=== PATIENT | female | born 1935 | race Caucasian/White ===

== ENCOUNTER 2021-06-18 20:08 | Inpatient (IN) | payer MEDICARE, OTHER ==
[~2021-06-18] VITALS: Ht 154.9 cm; Wt 84.1 kg
[~2021-06-18 20:08] MED LIST: LEVO250S3 PO
[2021-06-18 20:34] LABS: BASOPHILS % (AUTO) 0.6 % (0.0-5.0); EOSINOPHILS % (AUTO) 1.1 % (0.0-8.0); HEMATOCRIT 40.6 % (36-48); LYMPHOCYTES % (AUTO) 16.2 % (21.0-51.0); MEAN CORPUSCULAR HGB CONC 31.5 g/dL (32.0-36.0); MEAN CORPUSCULAR VOLUME 95.1 fL (79-99); PLATELET COUNT (AUTO) 281 K/uL (130-400); RED BLOOD CELL COUNT(AUTO) 4.27 MIL/uL (4.00-5.50); RED CELL DISTRIBUTION WIDTH 12.3 % (11.0-15.5); WHITE BLOOD COUNT (AUTO) 8.3 K/uL (4.8-10.8)
[2021-06-18 21:00] LABS: ALBUMIN 2.8 g/dL (3.5-5.0); BILIRUBIN,TOTAL 0.3 mg/dL (0.2-1.0); TOTAL PROTEIN, SERUM 6.4 g/dL (6.0-8.3)
[2021-06-18 21:04] LABS: POTASSIUM 2.8 mmol/L (3.5-5.1)
[2021-06-18] MEDS ORDERED: POTASSIUM BICARB/CIT AC 25 MEQ TABLET.EFF PO ONE (21:30)
[2021-06-18 22:23] LABS: APPEARANCE,URINE Turbid (CLEAR); BILIRUBIN,URINE Negative (NEGATIVE); COLOR,URINE Yellow (YELLOW); GLUCOSE, URINE (UA) Negative (NEGATIVE); KETONES,URINE Negative (NEGATIVE); LEUKOCYTE ESTERASE ,URINE Moderate (NEGATIVE); NITRATE,URINE Negative (NEGATIVE); OCCULT BLOOD,URINE Moderate (NEGATIVE); PH,URINE 8.5 (5.0-8.0); PROTEIN,URINE 300 mg/dL (NEGATIVE)
[2021-06-18] MEDS ORDERED: ACETAMINOPHEN 325 MG TAB PO PRN ×2 (22:30)
[2021-06-18] MEDS ORDERED: ONDANSETRON 4MG INJ IV PRN (22:30)
[2021-06-18] MEDS ORDERED: LACTULOSE 20 GM/30 ML UDCUP PO PRN (22:30)
[2021-06-18 22:48] LABS: BACTERIA,URINE Many /HPF (None Seen); WBC,URINE 51-100 /HPF (0-1)
[2021-06-18] MEDS ORDERED: CEFTRIAXONE 1G VIAL IVP ONE (23:30)
[2021-06-19] VITALS (8 sets, daily range): BP systolic 121–150; BP diastolic 58–77
[2021-06-19] MEDS ORDERED: LIDOCAINE HCL-MPF 1% 2ML VIAL IV PRN
[2021-06-19] MEDS ORDERED: POTASSIUM CHLORIDE 20MEQ/100ML 100 ML IV PRN
[2021-06-19] MEDS ORDERED: KCL 20 MEQ ERTAB PO PRN
[2021-06-19] MEDS ORDERED: KCL 20 MEQ ERTAB PO ONE (00:14)
[2021-06-19] MEDS ORDERED: MIRT-22 PO (01:32)
[2021-06-19] MEDS ORDERED: OLAN5TAB76 PO (01:32)
[2021-06-19] MEDS ORDERED: LOSA25TA41 PO (01:32)
[2021-06-19] MEDS ORDERED: CHOL100046 PO (01:32)
[2021-06-19] MEDS ORDERED: PARO-37 PO (01:32)
[2021-06-19] MEDS ORDERED: MEMA5TAB42 PO (01:32)
[2021-06-19 02:24] LABS: BASOPHILS % (AUTO) 0.5 % (0.0-5.0); EOSINOPHILS % (AUTO) 0.5 % (0.0-8.0); HEMATOCRIT 39.1 % (36-48); LYMPHOCYTES % (AUTO) 21.7 % (21.0-51.0); MEAN CORPUSCULAR HEMOGLOBIN 31.3 pg (27.0-33.0); MEAN CORPUSCULAR HGB CONC 32.7 g/dL (32.0-36.0); MEAN CORPUSCULAR VOLUME 95.6 fL (79-99); MONOCYTES % (AUTO) 9.9 % (3.0-13.0); NEUTROPHILS % (AUTO) 67.2 % (40.0-77.0); PLATELET COUNT (AUTO) 296 K/uL (130-400); RED BLOOD CELL COUNT(AUTO) 4.09 MIL/uL (4.00-5.50); RED CELL DISTRIBUTION WIDTH 12.4 % (11.0-15.5); WHITE BLOOD COUNT (AUTO) 8.1 K/uL (4.8-10.8)
[2021-06-19 02:33] LABS: CREATININE 0.9 mg/dL (0.5-1.5); POTASSIUM 3.1 mmol/L (3.5-5.1)
[2021-06-19] MEDS: MAGNESIUM 2GM PREMIX 50ML 50 ML IV PRN (02:45)
[2021-06-19] MEDS: POTASSIUM CHLORIDE 10% ELIXIR 20 MEQ/15 ML UDCUP PO PRN ×3 (02:46→12:45)
[2021-06-19] MEDS: CEFTRIAXONE 1G VIAL IV SCH (09:26)
[2021-06-19] MEDS: PAROXETINE HCL 20 MG TABLET PO SCH (21:36)
[2021-06-20 04:25] VITALS: BP 155/68
[2021-06-20 05:38] LABS: ALBUMIN 2.7 g/dL (3.5-5.0); BILIRUBIN,TOTAL 0.5 mg/dL (0.2-1.0); CREATININE 0.8 mg/dL (0.5-1.5); MAGNESIUM 1.9 mg/dL (1.80-2.40); TOTAL PROTEIN, SERUM 6.1 g/dL (6.0-8.3)
[2021-06-20] MEDS: CEFTRIAXONE 1G VIAL IV SCH (06:45)
[2021-06-20 08:00] VITALS: BP 142/73
[2021-06-20] MEDS: PAROXETINE HCL 20 MG TABLET PO SCH ×2 (10:04→20:54)
[2021-06-20] MEDS: FAMOTIDINE 20MG TAB PO SCH (10:04)
[2021-06-20] MEDS: LOSARTAN 25 MG TABLET PO SCH (10:04)
[2021-06-20] MEDS: **HM** VIT D3 25MCG PO SCH (10:04)
[2021-06-20] MEDS: MEMANTINE HCL 5 MG TABLET PO SCH (10:04)
[2021-06-20] MEDS: ENOXAPARIN SODIUM 40 MG/0.4 ML SYRINGE SQ SCH (10:04)
[2021-06-20 11:30] VITALS: BP 142/107
[2021-06-20] MEDS: DEXTROSE 5%-WATER 1,000 ML IV SCH (12:56)
[2021-06-20 16:00] VITALS: BP 137/80
[2021-06-20 20:15] VITALS: BP 145/78
[2021-06-20 23:55] VITALS: BP 162/67
[2021-06-21] MEDS: DEXTROSE 5%-WATER 1,000 ML IV SCH (00:50)
[2021-06-21 03:53] VITALS: BP 125/60
[2021-06-21 04:47] LABS: BASOPHILS % (AUTO) 1.2 % (0.0-5.0); EOSINOPHILS % (AUTO) 3.1 % (0.0-8.0); HEMATOCRIT 38.9 % (36-48); LYMPHOCYTES % (AUTO) 36.8 % (21.0-51.0); MEAN CORPUSCULAR HEMOGLOBIN 30.1 pg (27.0-33.0); MEAN CORPUSCULAR HGB CONC 31.4 g/dL (32.0-36.0); MONOCYTES % (AUTO) 13.6 % (3.0-13.0); NEUTROPHILS % (AUTO) 44.9 % (40.0-77.0); PLATELET COUNT (AUTO) 224 K/uL (130-400); RED BLOOD CELL COUNT(AUTO) 4.05 MIL/uL (4.00-5.50); RED CELL DISTRIBUTION WIDTH 12.4 % (11.0-15.5); WHITE BLOOD COUNT (AUTO) 4.9 K/uL (4.8-10.8)
[2021-06-21 05:06] LABS: ALBUMIN 2.2 g/dL (3.5-5.0); BILIRUBIN,TOTAL 0.4 mg/dL (0.2-1.0); CREATININE 0.8 mg/dL (0.5-1.5); MAGNESIUM 1.7 mg/dL (1.80-2.40); POTASSIUM 3.8 mmol/L (3.5-5.1); TOTAL PROTEIN, SERUM 5.8 g/dL (6.0-8.3)
[2021-06-21] MEDS: CEFTRIAXONE 1G VIAL IV SCH (06:40)
[2021-06-21 08:04] VITALS: BP 142/79
[2021-06-21] MEDS ORDERED: LEVO750T46 PO (08:09)
[2021-06-21] MEDS: MAGNESIUM 2GM PREMIX 50ML 50 ML IV PRN (08:41)
[2021-06-21] MEDS: MEMANTINE HCL 5 MG TABLET PO SCH (08:42)
[2021-06-21] MEDS: ENOXAPARIN SODIUM 40 MG/0.4 ML SYRINGE SQ SCH (08:42)
[2021-06-21] MEDS: PAROXETINE HCL 20 MG TABLET PO SCH (08:42)
[2021-06-21] MEDS: FAMOTIDINE 20MG TAB PO SCH (08:42)
[2021-06-21] MEDS: LOSARTAN 25 MG TABLET PO SCH (08:42)
[2021-06-21] MEDS: **HM** VIT D3 25MCG PO SCH (08:42)
[2021-06-21] MEDS ORDERED: MIRTAZAPINE 15 MG TABLET PO SCH (09:00)
[2021-06-21] MEDS ORDERED: OLANZAPINE 5 MG TAB PO SCH (09:00)
[2021-06-21] MEDS ORDERED: NIFEDIPINE ER 30 MG TAB PO SCH (12:40)
[2021-06-21 12:42] VITALS: BP 165/59
[2021-06-21 14:00] VITALS: BP 168/71
[2021-06-21] MEDS ORDERED: CLONIDINE HCL 0.1 MG TABLET ONE (14:18)
[2021-06-21] MEDS ORDERED: CLONIDINE HCL 0.1 MG TABLET PO ONE (14:30)
[2021-06-21 15:09] VITALS: BP 133/61
== END 2021-06-21 15:45 | disposition home or self-care (01) | DRG 690 ==
LOC: EDH 20:08 → EDHIP 22:14 → OBSVTOIN 22:14 → 3BH 06-19 00:46
PROVIDERS: ADMIT Internal Medicine; ATTEND Internal Medicine
DX: N39.0 Urinary tract infection, site not specified (principal); E87.0 Hyperosmolality and hypernatremia; E87.6 Hypokalemia; E11.9 Type 2 diabetes mellitus without complications; B96.1 Klebsiella pneumoniae [K. pneumoniae] as the cause of diseases classified elsewhere; I50.9 Heart failure, unspecified; I11.0 Hypertensive heart disease with heart failure; F03.90 Unspecified dementia, unspecified severity, without behavioral disturbance, psychotic disturbance, mood disturbance, and anxiety; I25.10 Atherosclerotic heart disease of native coronary artery without angina pectoris; I25.2 Old myocardial infarction; Z86.73 Personal history of transient ischemic attack (TIA), and cerebral infarction without residual deficits; E83.42 Hypomagnesemia
CPT/HCPCS: 36415; 70450; 71045; 80048; 80053; 81001; 82948; 83735; 83880; 84484; 85025; 87077; 87088; 87186; 93005; G0378; J0696; J1650; J3475; J7070

== ENCOUNTER 2021-09-06 14:24 | Inpatient (IN) | payer MEDICARE, OTHER ==
[~2021-09-06] VITALS: Ht 167.6 cm; Wt 80.6 kg
[~2021-09-06 14:24] MED LIST changes: +CHOL100046 PO; -LEVO250S3 PO; +LEVO750T68 PO; +LOSA25TA41 PO; +MEMA5TAB42 PO; +MIRT-22 PO; +OLAN5TAB76 PO; +PARO-37 PO
[2021-09-06] MEDS ORDERED: ZINC220T4 PO (15:02)
[2021-09-06] MEDS ORDERED: OLAN5TAB76 PO (15:02)
[2021-09-06 15:37] LABS: BASOPHILS % (AUTO) 0.7 % (0.0-5.0); EOSINOPHILS % (AUTO) 0.8 % (0.0-8.0); HEMATOCRIT 40.2 % (36-48); LYMPHOCYTES % (AUTO) 12.9 % (21.0-51.0); MEAN CORPUSCULAR HEMOGLOBIN 31.3 pg (27.0-33.0); MEAN CORPUSCULAR HGB CONC 32.6 g/dL (32.0-36.0); MEAN CORPUSCULAR VOLUME 95.9 fL (79-99); MONOCYTES % (AUTO) 9.5 % (3.0-13.0); NEUTROPHILS % (AUTO) 75.8 % (40.0-77.0); PLATELET COUNT (AUTO) 260 K/uL (130-400); RED BLOOD CELL COUNT(AUTO) 4.19 MIL/uL (4.00-5.50); RED CELL DISTRIBUTION WIDTH 12.3 % (11.0-15.5); WHITE BLOOD COUNT (AUTO) 7.4 K/uL (4.8-10.8)
[2021-09-06 15:44] LABS: APPEARANCE,URINE CLOUDY (CLEAR); BILIRUBIN,URINE NEGATIVE (NEGATIVE); COLOR,URINE YELLOW (YELLOW); GLUCOSE, URINE (UA) NEGATIVE (NEGATIVE); KETONES,URINE NEGATIVE (NEGATIVE); LEUKOCYTE ESTERASE ,URINE LARGE (NEGATIVE); NITRATE,URINE POSITIVE (NEGATIVE); OCCULT BLOOD,URINE TRACE-INTACT (NEGATIVE); PH,URINE 6.5 (5.0-8.0); PROTEIN,URINE TRACE mg/dL (NEGATIVE)
[2021-09-06 15:46] LABS: CREATININE 1.3 mg/dL (0.5-1.5); POTASSIUM 3.7 mmol/L (3.5-5.1)
[2021-09-06 15:50] LABS: AMPHET/METH SCREEN,URINE NEGATIVE (NEGATIVE); BARBITURATE SCREEN, URINE NEGATIVE (NEGATIVE); BENZODIAZEPINES SCREEN,URINE NEGATIVE (NEGATIVE); CANNABINOID SCREEN,URINE NEGATIVE (NEGATIVE); COCAINE SCREEN,URINE NEGATIVE (NEGATIVE); PHENCYCLIDINE SCREEN,URINE NEGATIVE (NEGATIVE)
[2021-09-06 15:53] LABS: ALBUMIN 3.1 g/dL (3.5-5.0); TOTAL PROTEIN, SERUM 6.8 g/dL (6.0-8.3)
[2021-09-06 15:54] LABS: BACTERIA,URINE Few /HPF (None Seen); SQUAMOUS EPITHELIAL CELL,UR Moderate /HPF (0-2); WBC,URINE 26-50 /HPF (0-1)
[2021-09-06 15:55] LABS: AMORPHOUS SEDIMENT,UR Rare /LPF (None Seen)
[2021-09-06] MEDS ORDERED: CEFTRIAXONE 1G VIAL IVP ONE (16:30)
[2021-09-06] MEDS ORDERED: DEXTROSE 5%-WATER 1,000 ML IV SCH (18:00)
[2021-09-06] MEDS ORDERED: ACETAMINOPHEN 325 MG TAB PO PRN ×2 (18:00)
[2021-09-06] MEDS ORDERED: ONDANSETRON 4MG INJ IV PRN (18:00)
[2021-09-06] MEDS: FAMOTIDINE 20MG TAB PO SCH (19:12)
[2021-09-06] MEDS: ZOSYN 3.375GM+NS 50ML 50 ML IV SCH (21:03)
[2021-09-06 21:20] VITALS: BP 158/50
[2021-09-06] MEDS: BISACODYL 5 MG TABLET.DR PO SCH (23:18)
[2021-09-07] VITALS (7 sets, daily range): BP systolic 109–146; BP diastolic 50–92
[2021-09-07] MEDS: ZOSYN 3.375GM+NS 50ML 50 ML IV SCH ×2 (09:12→21:19)
[2021-09-07] MEDS: BISACODYL 5 MG TABLET.DR PO SCH ×2 (09:12→21:19)
[2021-09-07] MEDS: FAMOTIDINE 20MG TAB PO SCH (09:12)
[2021-09-07] MEDS: ENOXAPARIN SODIUM 40 MG/0.4 ML SYRINGE SQ SCH (09:13)
[2021-09-08 03:44] VITALS: BP 146/57
[2021-09-08 05:05] LABS: HEMATOCRIT 37.5 % (36-48); MEAN CORPUSCULAR HEMOGLOBIN 31.1 pg (27.0-33.0); MEAN CORPUSCULAR HGB CONC 32.8 g/dL (32.0-36.0); MEAN CORPUSCULAR VOLUME 94.7 fL (79-99); RED BLOOD CELL COUNT(AUTO) 3.96 MIL/uL (4.00-5.50); RED CELL DISTRIBUTION WIDTH 12.3 % (11.0-15.5)
[2021-09-08 05:30] LABS: CREATININE 1.2 mg/dL (0.5-1.5); MAGNESIUM 1.7 mg/dL (1.80-2.40); PHOSPHORUS 3.4 mg/dL (2.5-4.9); POTASSIUM 3.7 mmol/L (3.5-5.1)
[2021-09-08 08:00] VITALS: BP 172/72
[2021-09-08] MEDS ORDERED: CEPH250S PO (08:15)
[2021-09-08] MEDS: FAMOTIDINE 20MG TAB PO SCH (08:37)
[2021-09-08] MEDS: MEMANTINE HCL 5 MG TABLET PO SCH (08:37)
[2021-09-08] MEDS: MIRTAZAPINE 15 MG TABLET PO SCH (08:37)
[2021-09-08] MEDS: ZINC SULFATE 220 CAPSULE PO SCH (08:37)
[2021-09-08] MEDS: LOSARTAN 25 MG TABLET PO SCH (08:37)
[2021-09-08] MEDS: PAROXETINE HCL 20 MG TABLET PO SCH ×2 (08:37→20:18)
[2021-09-08] MEDS: OLANZAPINE 5 MG TAB PO SCH (08:37)
[2021-09-08] MEDS: BISACODYL 5 MG TABLET.DR PO SCH ×2 (08:38→20:18)
[2021-09-08] MEDS: ENOXAPARIN SODIUM 40 MG/0.4 ML SYRINGE SQ SCH (08:38)
[2021-09-08] MEDS: **HM** VIT D3 25MCG PO SCH (08:39)
[2021-09-08] MEDS: CEPHALEXIN 250 MG/5 ML BOTTLE PO SCH ×3 (09:28→20:17)
[2021-09-08 11:33] VITALS: BP 125/54
[2021-09-08 16:00] VITALS: BP 149/64
[2021-09-08] MEDS ORDERED: COMPOUND PO MISCELLANEOUS 1 EACH MISC MISC PRN (19:30)
[2021-09-08 19:32] VITALS: BP 128/56
[2021-09-08 23:17] VITALS: BP 145/97
[2021-09-09] MEDS: CEPHALEXIN 250 MG/5 ML BOTTLE PO SCH ×2 (01:29→08:15)
[2021-09-09 04:11] VITALS: BP 116/59
[2021-09-09 08:00] VITALS: BP_SYST 125; BP_SYST 132; BP_DIAS 66; BP_DIAS 90
[2021-09-09] MEDS: BISACODYL 5 MG TABLET.DR PO SCH (08:14)
[2021-09-09] MEDS: FAMOTIDINE 20MG TAB PO SCH (08:14)
[2021-09-09] MEDS: ENOXAPARIN SODIUM 40 MG/0.4 ML SYRINGE SQ SCH (08:14)
[2021-09-09] MEDS: OLANZAPINE 5 MG TAB PO SCH (08:14)
[2021-09-09] MEDS: MEMANTINE HCL 5 MG TABLET PO SCH (08:14)
[2021-09-09] MEDS: MIRTAZAPINE 15 MG TABLET PO SCH (08:15)
[2021-09-09] MEDS: ZINC SULFATE 220 CAPSULE PO SCH (08:15)
[2021-09-09] MEDS: PAROXETINE HCL 20 MG TABLET PO SCH (08:15)
[2021-09-09] MEDS: LOSARTAN 25 MG TABLET PO SCH (08:15)
[2021-09-09] MEDS: **HM** VIT D3 25MCG PO SCH (08:15)
[2021-09-09 11:45] VITALS: BP 119/41
== END 2021-09-09 17:00 | disposition home or self-care (01) | DRG 690 ==
LOC: EDH 14:24 → EDHIP 17:44 → 3BH 21:19
PROVIDERS: ADMIT Internal Medicine; ATTEND Internal Medicine
DX: N39.0 Urinary tract infection, site not specified (principal); G93.49 Other encephalopathy; E87.0 Hyperosmolality and hypernatremia; F03.90 Unspecified dementia, unspecified severity, without behavioral disturbance, psychotic disturbance, mood disturbance, and anxiety; I11.0 Hypertensive heart disease with heart failure; I50.9 Heart failure, unspecified; Z79.899 Other long term (current) drug therapy
CPT/HCPCS: 36415; 70450; 80048; 80053; 80305; 81001; 83735; 84100; 84145; 84484; 85025; 85027; 87077; 87088; 87186; 93005; G0378; J0696; J1650; J2543

== ENCOUNTER 2022-04-02 15:52 | Emergency (ER) | payer MEDICARE, OTHER ==
[~2022-04-02] VITALS: Ht 167.6 cm; Wt 72.6 kg
[~2022-04-02 15:52] MED LIST changes: +CEPH250S PO; -LEVO750T68 PO; +ZINC220T4 PO
[2022-04-02 17:05] LABS: BASOPHILS % (AUTO) 0.4 % (0.0-5.0); EOSINOPHILS % (AUTO) 0.4 % (0.0-8.0); HEMATOCRIT 42.7 % (36-48); LYMPHOCYTES % (AUTO) 7.5 % (21.0-51.0); MEAN CORPUSCULAR HEMOGLOBIN 30.4 pg (27.0-33.0); MEAN CORPUSCULAR HGB CONC 32.1 g/dL (32.0-36.0); MEAN CORPUSCULAR VOLUME 94.9 fL (79-99); MONOCYTES % (AUTO) 9.1 % (3.0-13.0); NEUTROPHILS % (AUTO) 82.2 % (40.0-77.0); PLATELET COUNT (AUTO) 185 K/uL (130-400); RED CELL DISTRIBUTION WIDTH 12.8 % (11.0-15.5); WHITE BLOOD COUNT (AUTO) 9.2 K/uL (4.8-10.8)
[2022-04-02 17:15] LABS: INR 1.06 (0.85-1.15); PROTHROMBIN TIME 11.5 SEC (9.6-11.6)
[2022-04-02 17:16] LABS: PARTIAL THROMBOPLASTIN TIME 24.5 SEC (26.3-35.5)
[2022-04-02 17:17] LABS: CREATININE 1.1 mg/dL (0.5-1.5); POTASSIUM 3.6 mmol/L (3.5-5.1)
[2022-04-02 17:26] LABS: ALBUMIN 3.1 g/dL (3.5-5.0); TOTAL PROTEIN, SERUM 7.2 g/dL (6.0-8.3)
[2022-04-02] MEDS ORDERED: CEFTRIAXONE 1G VIAL IVP ONE (17:30)
[2022-04-02] MEDS ORDERED: 0.9%NACL 1000ML 2,500 ML IV ONE (17:30)
[2022-04-02 18:39] LABS: APPEARANCE,URINE TURBID (CLEAR); BILIRUBIN,URINE NEGATIVE (NEGATIVE); COLOR,URINE ORANGE (YELLOW); GLUCOSE, URINE (UA) NEGATIVE (NEGATIVE); KETONES,URINE 5 mg/dL (NEGATIVE); LEUKOCYTE ESTERASE ,URINE 500 Leu/uL (NEGATIVE); NITRATE,URINE NEGATIVE (NEGATIVE); PH,URINE 7.5 (5.0-8.0); PROTEIN,URINE 200 mg/dL (NEGATIVE)
[2022-04-02 18:47] LABS: BACTERIA,URINE MANY /HPF (None Seen); MUCUS,URINE RARE LPF (None Seen); OTHER CASTS, URINE 294 /LPF (None Seen); RBC,URINE 26-50 /HPF (0-1); SQUAMOUS EPITHELIAL CELL,UR FEW /HPF (0-2); WBC,URINE 51-100 /HPF (0-1); YEAST,URINE BUDDING FEW /HPF (None Seen)
[2022-04-02] MEDS ORDERED: HYDRALAZINE 20MG/ML VIAL IV ONE (21:30)
[2022-04-03 02:27] VITALS: BP 136/88
== END 2022-04-03 03:09 | disposition short-term general hospital (02) ==
LOC: EDH 15:52
DX: R41.82 Altered mental status, unspecified (principal); R56.9 Unspecified convulsions; N39.0 Urinary tract infection, site not specified; I10 Essential (primary) hypertension; F32.A Depression, unspecified; Z20.822 Contact with and (suspected) exposure to COVID-19; Z87.440 Personal history of urinary (tract) infections; Z88.8 Allergy status to other drugs, medicaments and biological substances; Z79.899 Other long term (current) drug therapy
CPT/HCPCS: 99285; 96374; 70450; 71045; 96361; 87635; 96375; 82550; 84484; 80053; 82140; 85025; 85610; 85730; 87040 ×2; 87077; 87088; 87186; 83605 ×2; 81001; 36415; C9803; J7030; J0360; J0696

== ENCOUNTER 2023-02-17 10:37 | Emergency (ER) | payer MEDICARE, OTHER ==
[~2023-02-17] VITALS: Ht 162.6 cm; Wt 79.4 kg
[~2023-02-17 10:37] MED LIST changes: +ASPI-1005 PO; -CHOL100046 PO; -ZINC220T4 PO
[2023-02-17 11:28] LABS: BASOPHILS # (AUTO) 0.03 K/uL (0.00-0.20); BASOPHILS % (AUTO) 0.6 % (0.0-5.0); EOSINOPHILS # (AUTO) 0.07 K/uL (0.00-0.70); EOSINOPHILS % (AUTO) 1.4 % (0.0-8.0); HEMATOCRIT 40.3 % (36-48); IMMATURE GRANULOCYTE ABSOLUTE 0.01 K/uL (0-1); MEAN CORPUSCULAR HEMOGLOBIN 31.8 pg (27.0-33.0); MEAN CORPUSCULAR HGB CONC 32.8 g/dL (32.0-36.0); MEAN CORPUSCULAR VOLUME 97.1 fL (79-99); MONOCYTES # (AUTO) 0.4 K/uL (0.1-1.0); MONOCYTES % (AUTO) 6.8 % (3.0-13.0); NEUTROPHILS # (AUTO) 3.7 K/uL (1.8-7.7); PLATELET COUNT (AUTO) 242 K/uL (130-400); RED BLOOD CELL COUNT(AUTO) 4.15 MIL/uL (4.00-5.50); WHITE BLOOD COUNT (AUTO) 5.1 K/uL (4.8-10.8)
[2023-02-17 11:39] LABS: ALBUMIN 2.8 g/dL (3.5-5.0); BILIRUBIN,TOTAL 0.3 mg/dL (0.2-1.0); POTASSIUM 3.3 mmol/L (3.5-5.1); TOTAL PROTEIN, SERUM 6.2 g/dL (6.0-8.3)
[2023-02-17 13:45] VITALS: O2SAT 97
[2023-02-17 14:18] LABS: APPEARANCE,URINE CLOUDY (CLEAR); COLOR,URINE Light-Yellow (YELLOW)
[2023-02-17 14:19] LABS: GLUCOSE, URINE (UA) NEGATIVE (NEGATIVE); LEUKOCYTE ESTERASE ,URINE MODERATE Leu/uL (NEGATIVE); NITRATE,URINE NEGATIVE (NEGATIVE); PROTEIN,URINE 100 mg/dL (NEGATIVE); UROBILINOGEN,URINE 0.2 mg/dL (0.2-1.0)
[2023-02-17 14:20] LABS: ADD UA MICROSCOPIC YES; BILIRUBIN,URINE NEGATIVE (NEGATIVE); KETONES,URINE NEGATIVE (NEGATIVE); OCCULT BLOOD,URINE SMALL (NEGATIVE)
[2023-02-17 14:21] LABS: BACTERIA,URINE Moderate /HPF (None Seen)
[2023-02-17 14:23] LABS: AMORPHOUS SEDIMENT,UR Moderate /LPF (None Seen)
[2023-02-17] MEDS ORDERED: CEFTRIAXONE 1G VIAL IVPB ONE (15:00)
[2023-02-17] MEDS ORDERED: LEVE-43 PO (15:45)
[2023-02-17] MEDS ORDERED: CEPH500B PO (15:45)
[2023-02-17] MEDS ORDERED: POTASSIUM BICARB/CIT AC 25 MEQ TABLET.EFF PO ONE (16:00)
[2023-02-17] MEDS ORDERED: LEVETIRACETAM 500 MG TABLET PO SCH (16:00)
[2023-02-17 16:26] VITALS: BP 148/62; PULSE 82; RESP 18
== END 2023-02-17 18:31 | disposition home or self-care (01) ==
LOC: EDH 10:37
DX: N39.0 Urinary tract infection, site not specified (principal); R56.9 Unspecified convulsions; I10 Essential (primary) hypertension; E11.9 Type 2 diabetes mellitus without complications; E78.00 Pure hypercholesterolemia, unspecified; F03.90 Unspecified dementia, unspecified severity, without behavioral disturbance, psychotic disturbance, mood disturbance, and anxiety; Z79.82 Long term (current) use of aspirin; Z79.899 Other long term (current) drug therapy; Z98.890 Other specified postprocedural states; Z88.8 Allergy status to other drugs, medicaments and biological substances
CPT/HCPCS: 99283; 96374; 80053; 85025; 87077; 87088; 87186; 81001; 36415; J0696